=== PATIENT | male | born 1955 | race Caucasian/White ===

== ENCOUNTER → 2017-02-15 | Outpatient (REF) | payer OTHER, SELFPAY ==
[~2017-02-15] MED LIST: AMLO10TA2 PO; BISO10TA6 PO; BISO5TAB5 PO; COUM2.5T11 PO; IBUP600T OR; NAPR500T2 PO; PERCOCET PO; ROSU10TA OR; TYLE325T5 PO; amlodipine OR
[2017-02-15 17:12] LABS: ALBUMIN/GLOBULIN RATIO 1.25 (1.00-1.93); ALKALINE PHOSPHATASE 112 U/L (45-117); ALT/SGPT 45 U/L (12-78); ANION GAP 11 MEQ/L (8-16); AST/SGOT 29 U/L (15-37); BILIRUBIN,TOTAL 0.3 MG/DL (0.2-1.0); BLOOD UREA NITROGEN 15 MG/DL (7-18); CALCIUM LEVEL 9.2 MG/DL (8.5-10.1); CARBON DIOXIDE LEVEL 24 MEQ/L (21-32); CHLORIDE LEVEL 103 MEQ/L (98-107); CHOLESTEROL LEVEL 295 MG/DL (<200); CREATININE FOR GFR 0.91 MG/DL (0.70-1.30); GLOMERULAR FILTRATION RATE > 60.0 (>56); GLUCOSE, FASTING 97 MG/DL (70-105); MAGNESIUM LEVEL 1.9 MG/DL (1.8-2.4); POTASSIUM SERUM 4.2 MEQ/L (3.5-5.1); SODIUM LEVEL 138 MEQ/L (136-145); TOTAL PROTEIN 7.2 GM/DL (6.4-8.2); TRIGLYCERIDES LEVEL 194 MG/DL (<150)
[2017-02-15 18:33] LABS: BASO % 0.6 % (0.0-1.0); EOS # 0.4 K/mm3 (0.0-0.50); EOS % 7.8 % (0.0-3.0); LARGE UNSTAINED CELL # 0.1 K/mm3 (0.0-0.4); LARGE UNSTAINED CELL % 1.7 % (0.0-4.0); LYMPH # 1.2 K/mm3 (1.5-4.5); LYMPH % 20.9 % (24.0-44.0); MEAN CORPUSCULAR HEMOGLOBIN 29.8 pg (27.0-33.0); MEAN CORPUSCULAR HGB CONC 34.2 g/dl (32.0-36.5); MEAN CORPUSCULAR VOLUME 87.2 fl (80.0-96.0); MONO # 0.5 K/mm3 (0.0-0.8); MONO % 8.9 % (0.0-5.0); NEUTROPHILS # 3.1 K/mm3 (1.8-7.7); PLATELET COUNT, AUTOMATED 231 k/mm3 (150-450); RED CELL DISTRIBUTION WIDTH 12.3 % (11.5-14.5); WHITE BLOOD COUNT 5.1 K/mm3 (4.0-10.0)
== END ==
LOC: M LAB REF 16:29
PROVIDERS: ATTEND Family Medicine
DX: I10 Essential (primary) hypertension (principal); F41.9 Anxiety disorder, unspecified; R78.1 Finding of opiate drug in blood; J45.30 Mild persistent asthma, uncomplicated

== ENCOUNTER → 2018-02-21 | Outpatient (REF) | payer OTHER ==
[2018-02-21 17:08] LABS: BASO % 0.6 % (0.0-1.0); EOS # 0.3 10^3/uL (0.0-0.50); EOS % 3.9 % (0.0-3.0); HEMATOCRIT 44.4 % (42.0-52.0); HEMOGLOBIN 14.7 g/dl (14.0-18.0); IMMATURE GRANULOCYTE % 0.3 % (0-3.0); LYMPH # 1.1 10^3/uL (1.5-4.5); LYMPH % 17.6 % (24.0-44.0); MEAN CORPUSCULAR HEMOGLOBIN 28.3 pg (27.0-33.0); MEAN CORPUSCULAR HGB CONC 33.1 g/dl (32.0-36.5); MEAN CORPUSCULAR VOLUME 85.4 fl (80.0-96.0); MONO # 0.7 10^3/uL (0.0-0.8); MONO % 10.7 % (0.0-5.0); NEUTROPHILS # 4.3 10^3/uL (1.8-7.7); NEUTROPHILS % 66.9 % (36.0-66.0); PLATELET COUNT, AUTOMATED 254 10^3/uL (150-450); RED CELL DISTRIBUTION WIDTH 12.5 % (11.5-14.5); WHITE BLOOD COUNT 6.4 10^3/uL (4.0-10.0)
[2018-02-21 17:25] LABS: ALBUMIN 4.2 GM/DL (3.2-5.2); ALBUMIN/GLOBULIN RATIO 1.27 (1.00-1.93); ALKALINE PHOSPHATASE 124 U/L (45-117); ALT/SGPT 48 U/L (12-78); ANION GAP 6 MEQ/L (8-16); AST/SGOT 29 U/L (7-37); BILIRUBIN,TOTAL 0.3 MG/DL (0.2-1.0); BLOOD UREA NITROGEN 18 MG/DL (7-18); CALCIUM LEVEL 9.1 MG/DL (8.8-10.2); CARBON DIOXIDE LEVEL 27 MEQ/L (21-32); CHLORIDE LEVEL 107 MEQ/L (98-107); CHOLESTEROL LEVEL 205 MG/DL (<200); CHOLESTEROL RISK RATIO 3.942 (<5); CREATININE FOR GFR 0.89 MG/DL (0.70-1.30); GLOMERULAR FILTRATION RATE > 60.0 (>49); GLUCOSE, FASTING 106 MG/DL (70-100); HDL CHOLESTEROL 52 MG/DL (>40); LDL CHOLESTEROL 132.2 MG/DL (<100); NON-HDL-C 153 MG/DL; POTASSIUM SERUM 4.5 MEQ/L (3.5-5.1); SODIUM LEVEL 140 MEQ/L (136-145); TOTAL PROTEIN 7.5 GM/DL (6.4-8.2); TRIGLYCERIDES LEVEL 104 MG/DL (<150)
[2018-02-21 17:30] LABS: TOTAL 25(OH) VITAMIN D 21.3 NG/ML (30.0-100.0)
== END ==
LOC: M LAB REF 16:28
DX: Z00.00 Encounter for general adult medical examination without abnormal findings (principal); F41.9 Anxiety disorder, unspecified; E78.1 Pure hyperglyceridemia; J45.30 Mild persistent asthma, uncomplicated; I10 Essential (primary) hypertension; E55.9 Vitamin D deficiency, unspecified
CPT/HCPCS: 80053

== ENCOUNTER → 2018-12-31 | Outpatient (CLI) | payer OTHER ==
[~2018-12-31] MED LIST changes: -AMLO10TA2 PO; +AMLO10TA5 PO; +BREO1INH INH; -COUM2.5T11 PO; +COUM2.5T17 PO; +HYDR10TAB PO; +NAPR-885 PO; -NAPR500T2 PO; +OMEP10CASR PO; +ROSU10TA5 PO
[2018-12-31 11:26] LABS: HEMATOCRIT 42.7 % (42.0-52.0); HEMOGLOBIN 14.6 g/dl (13.5-17.5); MEAN CORPUSCULAR HEMOGLOBIN 29.7 pg (27.0-33.0); MEAN CORPUSCULAR HGB CONC 34.2 g/dl (32.0-36.5); MEAN CORPUSCULAR VOLUME 86.8 fl (80.0-96.0); PLATELET COUNT, AUTOMATED 246 10^3/uL (150-450); RED BLOOD COUNT 4.92 10^6/uL (4.30-6.10); WHITE BLOOD COUNT 5.5 10^3/uL (4.0-10.0)
[2018-12-31 11:38] LABS: INR 0.94; PROTHROMBIN TIME 12.7 SECONDS (12.1-14.4)
[2018-12-31 12:01] LABS: ERYTHROCYTE SEDIMENTATION RATE 10 mm/hr (0-20)
[2018-12-31 12:21] LABS: ALBUMIN 3.9 GM/DL (3.2-5.2); ALT/SGPT 37 U/L (12-78); BILIRUBIN,TOTAL 0.4 MG/DL (0.2-1.0); BLOOD UREA NITROGEN 13 MG/DL (7-18); CARBON DIOXIDE LEVEL 27 MEQ/L (21-32); CHLORIDE LEVEL 102 MEQ/L (98-107); CREATININE FOR GFR 0.88 MG/DL (0.70-1.30); GLOMERULAR FILTRATION RATE > 60.0 (>49); GLUCOSE, FASTING 94 MG/DL (70-100); POTASSIUM SERUM 4.5 MEQ/L (3.5-5.1); SODIUM LEVEL 138 MEQ/L (136-145)
--- NOTE | 2018-12-31 22:38 | ECGEPIP ---
Stationary ECG Study [facility] Test Date: 2018-12-31 Pat Name: SALLY AZAR Department: Room: - Gender: M [employer]: ABBIE : 1955 Requested By: Noemy Arevalo Order Number: [id number] Reading MD: Megan Frank Measurements Intervals [place] Rate: 55 P: 39 NE: 183 QRS: 46 QRSD: 91 T: 53 QT: 416 QTc: 399 Interpretive Statements SINUS BRADYCARDIA MINIMAL CHANGE SINCE 05/09/14 Electronically Signed On 12-31-2018 22:38:14 EST by Megan Frank
--- NOTE | 2019-01-01 02:39 | REP ---
Clinical: Preoperative assessment . Comparison: 04/17/2015 . Technique: PA and lateral. Findings: The mediastinum and cardiac silhouette are normal. The lung nunes are clear and without acute consolidation, effusion, or pneumothorax. The skeletal structures are intact and normal. Impression: 1. No acute cardiopulmonary process. Electronically Signed by John Navarrete MD 01/01/2019 02:30 A
== END ==
LOC: M LAB 10:41
PROVIDERS: ATTEND Family Medicine
DX: Z01.818 Encounter for other preprocedural examination (principal); M16.11 Unilateral primary osteoarthritis, right hip

== ENCOUNTER 2019-01-22 06:41 | Inpatient (IN) | payer OTHER ==
[2019-01-22] VITALS (9 sets, daily range): BP systolic 105–158; BP diastolic 65–89; O2SAT 98
[~2019-01-22] VITALS: Ht 157.5 cm; Wt 74.8 kg
[~2019-01-22 06:41] MED LIST changes: +EPINEPHrine INJ 1 MG/ML 1ML AMP As Ordered ONE; +ceFAZolin 1GM INJ (J0690 PER 500MG) As Ordered ONE
[2019-01-22] MEDS ORDERED: LR 1,000 ML IV SCH ×3 (06:45→11:00)
[2019-01-22] MEDS ORDERED: ACETAMINOPHEN 500 MG TAB PO ONE (07:15)
[2019-01-22] MEDS ORDERED: PROPOFOL 200 MG/20 ML VIAL As Ordered ONE (08:04)
[2019-01-22] MEDS ORDERED: fentaNYL 100 MCG/2 ML INJECTION (J3010) As Ordered ONE (08:05)
[2019-01-22] MEDS ORDERED: MIDAZOLAM INJ 2 MG/2 ML VIAL (J2250) As Ordered ONE (08:05)
[2019-01-22] MEDS ORDERED: BUPIVACAINE/DEXTROSE 0.75% 2 ML AMP As Ordered ONE (08:12)
[2019-01-22] MEDS ORDERED: ceFAZolin 1GM INJ (J0690 PER 500MG) As Ordered ONE (08:57)
[2019-01-22] MEDS ORDERED: PHENYLephrine HCL 500 MCG/5 ML (100MCG/ML) SYRINGE (J2370) As Ordered ONE (09:15)
[2019-01-22] MEDS ORDERED: MORPHINE 1MG/ML IN 0.9% NACL 100ML IV BAG As Ordered ONE (10:42)
[2019-01-22] MEDS ORDERED: ACETAMINOPHEN TAB 650MG DOSE (2X325MG) PO PRN (11:00)
[2019-01-22] MEDS ORDERED: ONDANSETRON 4MG/2ML VIAL (J2405) IV PRN ×2 (11:00→12:00)
[2019-01-22] MEDS ORDERED: fentaNYL 100 MCG/2 ML INJECTION (J3010) IV PRN (11:00)
[2019-01-22] MEDS ORDERED: FLEET ENEMA PR PRN (11:00)
--- NOTE | 2019-01-22 11:21 | REP ---
Clinical: Status post arthroplasty. Technique: AP and cross-table lateral views. Findings: The patient is status post left hip replacement with normal positioning and appearance to the femoral and acetabular components. Overlying postsurgical changes appreciated. Impression: Satisfactory left hip replacement radiographs. Electronically Signed by John Navarrete MD 01/22/2019 11:12 A
[2019-01-22] MEDS ORDERED: MORPHINE 1MG/ML IN 0.9% NACL 100ML IV BAG IV PRN (12:00)
[2019-01-22] MEDS ORDERED: NALBUPHINE HCL 10 MG/ML AMP (J2300) IV PRN (12:00)
[2019-01-22] MEDS ORDERED: NALOXONE INJ 0.4 MG/1 ML VIAL (J2310) IV PRN (12:00)
[2019-01-22] MEDS ORDERED: diphenhydrAMINE INJ 50MG/ML VIAL (J1200) IV PRN (12:00)
[2019-01-22] MEDS ORDERED: EPIDURAL/PCA KEYS XX PRN (12:00)
[2019-01-22] MEDS ORDERED: HYDR-643 PO (12:04)
--- NOTE | 2019-01-22 12:26 | RO ---
DATE OF PROCEDURE: 01/22/2019 PREPROCEDURE DIAGNOSIS: Left hip osteoarthritis. POSTPROCEDURE DIAGNOSIS: Left hip osteoarthritis. PROCEDURE: Left total hip arthroplasty using a Size 52 Gription cup, 36 mm liner, and an 8.5, 36 head with a high offset stem, size #5 [place]. Prosthesis made by [employer]. SURGEON: Dr. Sinai Chavez HEAT TREATING OPERATOR: Ms. Ellen Millan ANESTHESIA: Spinal. SPECIMENS: Femoral head. ESTIMATED BLOOD LOSS: 200 mL. COMPLICATIONS: None. DESCRIPTION OF PROCEDURE: Antibiotics were given intravenously preoperatively and a successful spinal anesthetic was induced. Then he was placed in lateral decubitus position. The Mobile hip positioner was utilized, the down leg well padded, especially the peroneal nerve. Axillary roll utilized. The left hip area was then carefully prepped and draped in the usual sterile fashion. After an appropriate time out, a longitudinal incision was made for a direct anterolateral approach to the hip. Bovie cautery was used to coagulate crossing vessels. We divided the tensor fascia in line with the skin incision. We split the gluteus medius anterior 1/3 posterior 2/3 junction down to the gluteus minimus and anterior hip capsule. Then carefully dissected off the proximal femur as we externally rotated the hip and dislocated it. The starter reamer was placed in the piriformis fossa, followed by the canal finding reamer and then the lateralizing reamer. Then, we reamed up to a size 5. Femoral neck osteotomy was used, using the guide as a template. Then we began broaching up to a size 5. We had excellent fit and fill. Calcar planer was utilized. We exposed the acetabulum and performed a labral excision 360 degrees and then began reaming, beginning at 46 mm and advanced to 51. The 52 trial fit nicely using the extramedullary guide to help guide our abduction and version. Thus, we placed the real cup after curetting out some small cysts, especially anteriorly and superiorly, and then placing some of the reaming bone graft. The #52 Gription real cup was then inserted using the guide to help guide our abduction and version. It was well seated and the central hole eliminator was placed. Then the cup plastic liner was placed. We then irrigated out the femoral canal thoroughly and then placed the #5 broach and began a serial of trial reductions. First, using a 1.5 standard offset, but we needed quite a bit more length and some offset, but he was very stable to flexion, internal rotation and extension and external rotation, but he had a significant amount of telescoping of the soft tissues. Thus, I went to a higher offset for better clearance and then first trialed with the +5. He still had I felt to be excessive telescoping or pistoning and thus a +8.5 was trialed and that had much better stability. So I elected to go with that size components on the femoral side. Thus, we removed the broach, irrigated out the femoral canal and placed a real #5 high offset stem, followed by the 8.5 x 36 mm ball. The hip was then reduced. We copiously irrigated out the wound. Then, began closing the gluteus minimus and anterior hip capsule back meticulously with #1 PDS suture and closed the gluteus medius back anatomically with interrupted #1 PDS suture, irrigating between layers. Then closed the tensor fascia with a combination of #1 PDS sutures and a running #1 Stratafix. Then we irrigated between layers and closed the deep subdermal tissues with interrupted #2-0 PDS suture. The skin was closed with lloyd, covered by an Optifoam and dry sterile bulky dressing. He was then turned supine and then transferred to the recovery room in stable condition. There were no intraoperative complications. Ellen Millan was critical to the success of a difficult operation by helping to manipulate the leg in and out of the leg bag, helping with appropriate soft tissue retraction, as well as, performing the operation smoothly, efficiently and safely, helped close the wound, helped prepare the patient, plus many other tasks.
[2019-01-22] MEDS ORDERED: hydrOXYzine 10 MG TAB PO PRN (14:15)
[2019-01-22] MEDS ORDERED: OMEP20CA3 PO (14:41)
--- NOTE | 2019-01-22 15:09 | IPN ---
DATE: 01/22/2019 SUBJECTIVE: The patient tells me that he is feeling quite well. He denies any specific complaints at this time. He is in the company of his . He denies fevers, chest pain or shortness of breath. OBJECTIVE: VITAL SIGNS: Temperature 96.4, pulse 64, respiratory rate 19, blood pressure 105/65, oxygen saturation 93% on two liters nasal cannula. GENERAL: He is a pleasant, elderly, man sitting up in bed. He does not appear to be in any acute distress whatsoever. He is wearing nasal cannula. NEUROLOGIC: Cranial nerves II-XII are grossly intact. HEENT: He has moist mucous membranes. No elevation in central venous pressure (CVP). CARDIOVASCULAR: S1, S2, regular. RESPIRATORY: Clear. ABDOMINAL: Benign. EXTREMITIES: No clubbing, cyanosis, or edema. His dressing is clean, dry and intact on the left hip. LABORATORY DATA: No recent laboratories. ASSESSMENT AND PLAN: This is a 63-year-old man postoperative day zero for a elective total hip arthroplasty. 1. Left total hip arthroplasty. Management as per orthopedic surgery regarding physical therapy (PT), pain control, deep vein thrombosis (DVT) prophylaxis, Rosa catheter, and such. 2. Anxiety. We will continue with his home hydroxyzine twice a day. 3. Hypertension. We will continue with bisoprolol with holding parameters. We will hold his Norvasc and see how his blood pressure is. Should he become hypertensive, we could consider resuming this sooner rather than later. 4. Gastroesophageal reflux disease. Continue with omeprazole. 5. Dyslipidemia. Continue with Crestor. 6. Chronic obstructive pulmonary disease (COPD). He is stable and at his baseline respiratory status. He normally takes Breo Ellipta which is not in formulary for us. Should he need it, we could consider DuoNeb treatments. Thank you for involving us in this interesting patient's care. Please call with any specific questions.
[2019-01-22] MEDS: ROSUVASTATIN 10 MG TAB (CRESTOR) PO SCH (15:24)
[2019-01-22] MEDS: OMEPRAZOLE 20 MG CAP PO SCH (15:24)
[2019-01-22] MEDS: BISOPROLOL FUMARATE 5 MG TAB PO SCH (20:45)
[2019-01-22] MEDS ORDERED: ONDANSETRON 4 MG TAB (S0181) PO PRN (21:45)
[2019-01-22] MEDS ORDERED: PERCOCET 5MG/325MG TAB PO PRN (21:45)
[2019-01-23] MEDS: PERCOCET 5MG/325MG TAB PO PRN ×3 (01:53→10:54)
[2019-01-23 02:00] VITALS: BP 138/89
[2019-01-23 06:00] VITALS: BP 128/73
[2019-01-23 06:40] LABS: HEMATOCRIT 37.2 % (42.0-52.0); HEMOGLOBIN 12.4 g/dl (13.5-17.5); MEAN CORPUSCULAR HEMOGLOBIN 29.2 pg (27.0-33.0); MEAN CORPUSCULAR HGB CONC 33.3 g/dl (32.0-36.5); MEAN CORPUSCULAR VOLUME 87.7 fl (80.0-96.0); PLATELET COUNT, AUTOMATED 206 10^3/uL (150-450); RED BLOOD COUNT 4.24 10^6/uL (4.30-6.10); WHITE BLOOD COUNT 10.7 10^3/uL (4.0-10.0)
[2019-01-23] MEDS ORDERED: PERC5TAB12 PO (07:24)
[2019-01-23] MEDS ORDERED: XARE10TA PO (07:24)
[2019-01-23] MEDS ORDERED: MOM 30ML SUSPENSION UDC PO SCH (09:00)
[2019-01-23] MEDS ORDERED: MIRALAX *UNIT DOSE* 17GM PACKET PO SCH (09:00)
[2019-01-23] MEDS: OMEPRAZOLE 20 MG CAP PO SCH (09:12)
[2019-01-23] MEDS: ROSUVASTATIN 10 MG TAB (CRESTOR) PO SCH (09:12)
[2019-01-23 09:13] VITALS: BP 128/73
[2019-01-23] MEDS: BISOPROLOL FUMARATE 5 MG TAB PO SCH (09:13)
[2019-01-23 10:00] VITALS: BP 110/63
[2019-01-23] MEDS ORDERED: RIVAROXABAN 10 MG TAB (XARELTO) PO SCH (18:00)
== END 2019-01-23 12:05 | disposition home or self-care (01) | DRG 470 ==
LOC: M OR 06:41 → M MS5PR 11:45
PROVIDERS: ADMIT Orthopaedic Surgery; ATTEND Orthopaedic Surgery
PROC: 0SRB0J9 Replacement of Left Hip Joint with Synthetic Substitute, Cemented, Open Approach (ICD-10-PCS; principal; 2019-01-22 08:30)
DX: M16.12 Unilateral primary osteoarthritis, left hip (principal); F41.9 Anxiety disorder, unspecified; I10 Essential (primary) hypertension; K21.9 Gastro-esophageal reflux disease without esophagitis; E78.5 Hyperlipidemia, unspecified; J44.9 Chronic obstructive pulmonary disease, unspecified; Z79.899 Other long term (current) drug therapy; Z96.641 Presence of right artificial hip joint; Z88.2 Allergy status to sulfonamides

== ENCOUNTER 2024-11-18 10:02 | Day surgery (SDC) | payer MEDICARE, OTHER ==
[~2024-11-18] VITALS: Ht 170.2 cm; Wt 91.6 kg
[~2024-11-18 10:02] MED LIST changes: -AMLO10TA5 PO; +AMLO1TAB25 PO; +BISO10TA14 PO; -BISO10TA6 PO; +BISO5TAB14 PO; -BISO5TAB5 PO; +BREO1INH3 INH; +CRES10TA32 OR; -EPINEPHrine INJ 1 MG/ML 1ML AMP As Ordered ONE; +HYDR-161 PO; +HYDR-643 PO; -HYDR10TAB PO; +OMEP-173 PO; +OMEP1CAP73 PO; +PERC5TAB12 PO; -ROSU10TA OR; -ROSU10TA5 PO; +ROSU10TA61 PO; +XARE10TA PO; -ceFAZolin 1GM INJ (J0690 PER 500MG) As Ordered ONE
[2024-11-18] MEDS ORDERED: LR 1,000 ML IV SCH (10:40)
[2024-11-18] MEDS ORDERED: ACETAMINOPHEN 1000MG/100ML IV BAG As Ordered ONE (11:29)
[2024-11-18] MEDS ORDERED: LIDOCAINE 2% 100MG/5ML SDV (FOR ANES.) As Ordered ONE (12:15)
[2024-11-18] MEDS ORDERED: propofoL 200 MG/20 ML VIAL As Ordered ONE (12:15)
[2024-11-18] MEDS ORDERED: ONDANSETRON 4MG 2ML VIAL As Ordered ONE (12:15)
[2024-11-18] MEDS ORDERED: ROCURONIUM BROMIDE 50MG/5ML VIAL As Ordered ONE (12:15)
[2024-11-18] MEDS ORDERED: SUGAMMADEX SODIUM 500 MG/5 ML VIAL (BRIDION) As Ordered ONE (12:15)
[2024-11-18] MEDS ORDERED: fentaNYL 100 MCG/2 ML INJECTION As Ordered ONE (12:21)
[2024-11-18] MEDS ORDERED: MIDAZOLAM INJ 2MG/2ML VIAL As Ordered ONE (12:21)
[2024-11-18] MEDS ORDERED: LABETALOL 100MG/20ML VIAL As Ordered ONE (13:36)
[2024-11-18] MEDS: LIDOCAINE W/EPINEPHRINE 1% 20ML VIAL As Ordered ONE (13:37)
[2024-11-18] MEDS: BACITRACIN OINTMENT 30GM TUBE As Ordered ONE (13:55)
[2024-11-18] MEDS: CLINDAMYCIN 600MG/50ML PREMIX BAG As Ordered ONE (14:06)
[2024-11-18] MEDS: EPINEPHrine 1MG/ML INJ 30ML MD-VIAL As Ordered ONE (14:06)
[2024-11-18] MEDS: METHYLENE BLUE 0.5% (5MG/ML) 10 ML AMP (PROVAYBLUE) As Ordered ONE (14:06)
[2024-11-18 15:09] VITALS: BP 158/80; TEMP 97.8; O2SAT 97
== END 2024-11-18 15:13 | disposition home or self-care (01) ==
LOC: M SDC 10:02
PROVIDERS: ATTEND Otolaryngology
DX: C44.02 Squamous cell carcinoma of skin of lip (principal); I10 Essential (primary) hypertension; E78.00 Pure hypercholesterolemia, unspecified; K21.9 Gastro-esophageal reflux disease without esophagitis; J44.9 Chronic obstructive pulmonary disease, unspecified; Z79.899 Other long term (current) drug therapy; Z79.51 Long term (current) use of inhaled steroids; Z88.2 Allergy status to sulfonamides
CPT/HCPCS: 40525; 88307; J0131; J0737; J1100; J1920; J2250; J2405; J3010

== ENCOUNTER → 2025-01-13 | Outpatient (CLI) | payer MEDICARE, OTHER | LOC: M PLAIMG 09:05 | PROVIDERS: ATTEND Otolaryngology | DX: C44.02 Squamous cell carcinoma of skin of lip (principal); I65.23 Occlusion and stenosis of bilateral carotid arteries ==